=== PATIENT | female | born 1960 | race African-American/Black ===

== ENCOUNTER 2025-01-22 09:24 | Inpatient (IN) | payer MEDICARE, MEDICAID ==
[~2025-01-22] VITALS: Ht 170.2 cm; Wt 92.1 kg
[2025-01-22 09:26] VITALS: O2SAT 98
[2025-01-22 10:15] LABS: BASOPHILS % 0.2 % (0.0-2.0); EOSINOPHILS % 0.0 % (0.0-5.0); HEMATOCRIT. 38.1 % (36.0-48.0); HEMOGLOBIN. 10.8 g/dL (12.0-16.0); LYMPHOCYTES % 15.1 % (20.0-50.0); MEAN PLATELET VOLUME 9.1 fl (7.4-10.4); MONOCYTES % 4.7 % (2.0-8.0); NEUTROPHILS % 80.0 % (40.0-76.0); PLATELET 288 x1000/uL (130-400); RED BLOOD CELL COUNT 3.23 mill/uL (4.2-5.4); RED CELL DISTRIBUTION WIDTH 16.4 % (11.6-14.6)
[2025-01-22 10:17] LABS: ADD RBC MORPHOLOGY YES
[2025-01-22 10:53] LABS: CREATININE 1.1 mg/dL (0.6-1.0); UREA NITROGEN BLOOD 13 mg/dL (9-23)
[2025-01-22] MEDS ORDERED: SODIUM CHLORIDE 0.9% 1,000 ML IV ONE (11:30)
[2025-01-22] MEDS: SODIUM CHLORIDE 0.9% 1,000 ML IV ONE (12:06)
[2025-01-22] MEDS: PANTOPRAZOLE SODIUM 40 MG/VIAL IV NR (12:06)
[2025-01-22] MEDS ORDERED: ONDANSETRON HCL 4MG/2ML INJ IV PRN (12:15)
[2025-01-22] MEDS ORDERED: ACETAMINOPHEN 325MG TABLET PO PRN ×2 (12:15)
[2025-01-22] MEDS ORDERED: IPRATROPIUM/ALBUTEROL 0.5-3(2.5)MG/3ML NEB HHN PRN (12:15)
[2025-01-22 12:30] LABS: PLATELET ESTIMATE NORMAL
[2025-01-22] MEDS: SODIUM CHLORIDE 0.9% 1,000 ML IV SCH (12:45)
[2025-01-22] MEDS: BLOOD SUGAR DIAGNOSTIC STRIP TEST SCH (13:00)
[2025-01-22 14:18] LABS: INR 1.3
[2025-01-22 14:19] LABS: PHOSPHORUS 4.5 mg/dL (2.5-4.9)
[2025-01-22 14:23] LABS: FOLIC ACID (FOLATE) SERUM 8.90 ng/mL (>5.38); VITAMIN B12 SERUM 1091 pg/mL (211-911)
[2025-01-22] MEDS ORDERED: NON FORMULARY MED XX SCH (14:45)
[2025-01-22] MEDS: INSULIN REGULAR (HUMULIN R) 1000UNITS/10ML VIAL IV SCH (15:00)
[2025-01-22] MEDS: INSULIN GLARGINE 100 UNITS/ML SUBCUT SCH (15:00)
[2025-01-22] MEDS: SODIUM CHLORIDE 0.9% 250 ML IV ONE (15:18)
[2025-01-22] MEDS: MAGNESIUM 2 G PREMIX 50 ML IV SCH (15:39)
[2025-01-22 16:38] LABS: BG BASE EXCESS -3.5 mmol/L (-2.0-3.0); BG CARBOXYHEMOGLOBIN 0.3 % (0.5-1.5); BG DEOXYHEMOGLOBIN 4.2 % (0.0-5.0); BG FRACTION INSPIRED OXYGEN 21; BG HCO3 ACT 19.7 mmol/L (21.0-28.0); BG METHEMOGLOBIN 0.3 % (0.5-1.5); BG OXYGEN SATURATION 95.8 % (94.0-98.0); BG OXYHEMOGLOBIN 95.2 % (94.0-98.0); BG PCO2 29.2 mmHg (32.0-45.0); BG PH 7.446 (7.350-7.450); BG PO2 79.4 mmHg (83.0-108.0); BG SAMPLE SITE RIGHT BRACHIAL; BG TOTAL HEMOGLOBIN 10.4 g/dL (12.0-16.0); BG VENT MODE ROOM AIR
[2025-01-22 17:10] LABS: CREATININE 0.9 mg/dL (0.6-1.0); UREA NITROGEN BLOOD 19 mg/dL (9-23)
[2025-01-22 17:15] LABS: T4 FREE 0.97 ng/dL (0.89-1.76)
[2025-01-22 19:01] VITALS: BP 100/61; PULSE 81; RESP 16; TEMP 36.696
[2025-01-22 20:00] VITALS: BP 107/66; PULSE 94; RESP 19; TEMP 36.6; O2SAT 100
[2025-01-22] MEDS ORDERED: TOPUD PO (20:17)
[2025-01-22 22:15] LABS: PHOSPHORUS 4.2 mg/dL (2.5-4.9)
[2025-01-23] VITALS: BP 103/61; PULSE 89; RESP 18; TEMP 36.7; O2SAT 98
[2025-01-23 04:00] VITALS: BP 98/54; PULSE 90; RESP 18; TEMP 36.6; O2SAT 98
[2025-01-23] MEDS: DEXTROSE 50% WATER 50ML SYRINGE IV PRN (06:58)
[2025-01-23] MEDS ORDERED: SODIUM CHLORIDE 0.9% 1,000 ML IV NR (07:45)
[2025-01-23 08:00] VITALS: BP 90/62; PULSE 74; RESP 18; TEMP 36.4; O2SAT 98
[2025-01-23] MEDS: DEXT 5% WATER 100 ML IV ONE (08:50)
[2025-01-23] MEDS: IRON SUCROSE COMPLEX 100 MG/5 ML ML IV SCH (08:50)
[2025-01-23] MEDS ORDERED: DEXTROSE 50% WATER 50ML SYRINGE IV PRN (10:15)
[2025-01-23] MEDS: BLOOD SUGAR DIAGNOSTIC STRIP TEST SCH (11:39)
[2025-01-23] MEDS: INSULIN LISPRO 100 UNITS/ML SUBCUT SCH (11:40)
[2025-01-23 12:00] VITALS: BP 98/53; PULSE 70; RESP 16; TEMP 36.6; O2SAT 97
[2025-01-23] MEDS: DEXT 5%/0.9% NACL 1,000 ML IV SCH (14:09)
[2025-01-23 16:00] VITALS: BP 100/52; PULSE 92; RESP 18; TEMP 37; O2SAT 100
[2025-01-23 20:00] VITALS: BP 97/55; PULSE 72; RESP 16; TEMP 36.5; O2SAT 99
[2025-01-23] MEDS ORDERED: IOHEXOL-350 50 ML BOTTLE ONE (23:55)
[2025-01-23] MEDS ORDERED: IOHEXOL-350 100 ML BOTTLE ONE (23:55)
[2025-01-24] VITALS (10 sets, daily range): BP systolic 103–111; BP diastolic 48–62; PULSE 79–84; RESP 18–20; TEMP 36.5–36.6; O2SAT 96–99
[2025-01-24] MEDS ORDERED: CEFAZOLIN 1000MG PREMIX 50 ML IV ONE ×2 (08:45→08:54)
[2025-01-24] MEDS ORDERED: LIDOCAINE HCL 1% 10 MG/ML 10ML VIAL ONE (09:03)
[2025-01-24] MEDS: CLINDAMYCIN 600MG PREMIX 50 ML IV SCH (09:40)
[2025-01-24 18:39] LABS: BASOPHILS % 0.4 % (0.0-2.0); EOSINOPHILS % 0.2 % (0.0-5.0); HEMATOCRIT. 30.2 % (36.0-48.0); HEMOGLOBIN. 9.8 g/dL (12.0-16.0); LYMPHOCYTES % 18.9 % (20.0-50.0); MEAN PLATELET VOLUME 9.2 fl (7.4-10.4); MONOCYTES % 8.0 % (2.0-8.0); NEUTROPHILS % 72.5 % (40.0-76.0); PLATELET 267 x1000/uL (130-400); RED BLOOD CELL COUNT 2.90 mill/uL (4.2-5.4); RED CELL DISTRIBUTION WIDTH 14.6 % (11.6-14.6)
[2025-01-24 18:56] LABS: UREA NITROGEN BLOOD 15 mg/dL (9-23)
[2025-01-24 18:59] LABS: PHOSPHORUS 3.7 mg/dL (2.5-4.9)
[2025-01-24 19:12] LABS: CREATININE 0.5 mg/dL (0.6-1.0)
[2025-01-25 06:11] LABS: FOLICLE STIMULATING HORMONE 72.4 mIU/mL (25.8-134.8); LUTEINIZING HORMONE 68.1 mIU/mL (7.7-58.5)
[2025-01-25 08:30] VITALS: BP 125/66; PULSE 72; RESP 18; TEMP 36.6; O2SAT 97
[2025-01-25] MEDS ORDERED: FERR325T6 MT (11:46)
[2025-01-25 12:30] VITALS: BP 120/69; PULSE 70; RESP 18; TEMP 36.5; O2SAT 96
[2025-01-25 16:30] VITALS: BP 115/72; PULSE 71; RESP 18; TEMP 36.5; O2SAT 96
[2025-01-25 17:13] LABS: BASOPHILS % 0.7 % (0.0-2.0); EOSINOPHILS % 0.2 % (0.0-5.0); HEMATOCRIT. 28.7 % (36.0-48.0); HEMOGLOBIN. 9.3 g/dL (12.0-16.0); LYMPHOCYTES % 18.7 % (20.0-50.0); MEAN PLATELET VOLUME 9.1 fl (7.4-10.4); MONOCYTES % 6.6 % (2.0-8.0); NEUTROPHILS % 73.8 % (40.0-76.0); PLATELET 230 x1000/uL (130-400); RED BLOOD CELL COUNT 2.72 mill/uL (4.2-5.4); RED CELL DISTRIBUTION WIDTH 14.7 % (11.6-14.6)
[2025-01-25 17:27] VITALS: BP 115/67; PULSE 62; RESP 18; TEMP 97.7
[2025-01-25 17:31] LABS: CREATININE 0.6 mg/dL (0.6-1.0)
[2025-01-25 17:32] LABS: UREA NITROGEN BLOOD 14 mg/dL (9-23)
== END 2025-01-25 18:40 | disposition home or self-care (01) | DRG 299 ==
LOC: ER 09:24 → EDBEDREQ 11:57 → EDBEDREQTM 11:57 → 8WST 18:24
PROVIDERS: ADMIT Hospitalist; ATTEND Hospitalist
PROC: 06H03DZ Insertion of Intraluminal Device into Inferior Vena Cava, Percutaneous Approach (ICD-10-PCS; principal; 2025-01-24)
DX: I82.433 Acute embolism and thrombosis of popliteal vein, bilateral (principal); L89.153 Pressure ulcer of sacral region, stage 3; E87.20 Acidosis, unspecified; N93.8 Other specified abnormal uterine and vaginal bleeding; D21.9 Benign neoplasm of connective and other soft tissue, unspecified; N85.2 Hypertrophy of uterus; D50.9 Iron deficiency anemia, unspecified; N95.0 Postmenopausal bleeding; D64.9 Anemia, unspecified; I95.9 Hypotension, unspecified; E66.9 Obesity, unspecified; R73.9 Hyperglycemia, unspecified; Z68.32 Body mass index [BMI] 32.0-32.9, adult
CPT/HCPCS: 36415; 36556; 36600; 37191; 71045; 74174; 76856; 80048; 82010; 82375; 82607; 82746; 82805; 82962; 83001; 83002; 83036; 83540; 83550; 83605; 83735; 84100; 84145; 84439; 84443; 85014; 85018; 85025; 86850; 86900; 93005; 93970; 96365; 96372; 99285; C1769; C1880; C1887; J0690; J1815; J2003; J2470; J3475; J3490; J7030; J7042; Q9967

== ENCOUNTER 2025-02-04 11:10 | Inpatient (IN) | payer MEDICARE, MEDICAID ==
[~2025-02-04] VITALS: Ht 170.2 cm; Wt 127.6 kg
[2025-02-04 11:10] VITALS: O2SAT 100
[~2025-02-04 11:10] MED LIST: FERR325T6 MT; LEVO750T68 MT; TOPUD PO
[2025-02-04] MEDS: LACTATED RINGERS 1,000 ML IV SCH (11:30)
[2025-02-04] MEDS ORDERED: CEFEPIME 2GM IN DEXT 5% 100ML IV ONE (11:30)
[2025-02-04 12:12] LABS: EOSINOPHILS % 0.1 % (0.0-5.0); MEAN PLATELET VOLUME 8.7 fl (7.4-10.4); PLATELET 149 x1000/uL (130-400); RED BLOOD CELL COUNT 2.00 mill/uL (4.2-5.4); RED CELL DISTRIBUTION WIDTH 17.4 % (11.6-14.6)
[2025-02-04] MEDS: LACTATED RINGERS IV SCH (12:12)
[2025-02-04 12:20] LABS: BASOPHILS % 0.2 % (0.0-2.0); HEMATOCRIT. 22.1 % (36.0-48.0); HEMOGLOBIN. 6.6 g/dL (12.0-16.0); LYMPHOCYTES % 11.3 % (20.0-50.0); MONOCYTES % 4.6 % (2.0-8.0); NEUTROPHILS % 83.8 % (40.0-76.0)
[2025-02-04 12:22] LABS: CREATININE 1.2 mg/dL (0.6-1.0); UREA NITROGEN BLOOD 21 mg/dL (9-23)
[2025-02-04 12:23] LABS: TROPONIN I HIGH SENSITIVITY 7 ng/L (3.0-34)
[2025-02-04 12:24] LABS: ASPARTATE AMINOTRANSFERASE 29 IU/L (<34); BILIRUBIN TOTAL 0.6 mg/dL (0.1-1.0); PROTEIN TOTAL 6.2 g/dL (6.0-8.3)
[2025-02-04] MEDS: CEFEPIME 2GM PREMIX 100ML IV SCH (12:32)
[2025-02-04 12:58] LABS: INR 1.9
[2025-02-04] MEDS: ONDANSETRON HCL 4MG/2ML INJ IV ONE (13:32)
[2025-02-04] MEDS ORDERED: ACETAMINOPHEN 325MG TABLET PO PRN (13:45)
[2025-02-04] MEDS: SODIUM CHLORIDE 0.9% 1,000 ML IV SCH (14:14)
[2025-02-04] MEDS: MIDODRINE HCL 5MG TABLET PO SCH (22:10)
[2025-02-04 23:11] LABS: BASOPHILS % 0.2 % (0.0-2.0); EOSINOPHILS % 0.3 % (0.0-5.0); HEMATOCRIT. 24.3 % (36.0-48.0); HEMOGLOBIN. 7.7 g/dL (12.0-16.0); LYMPHOCYTES % 10.4 % (20.0-50.0); MEAN PLATELET VOLUME 7.7 fl (7.4-10.4); MONOCYTES % 6.7 % (2.0-8.0); NEUTROPHILS % 82.4 % (40.0-76.0); PLATELET 70 x1000/uL (130-400); RED BLOOD CELL COUNT 2.34 mill/uL (4.2-5.4); RED CELL DISTRIBUTION WIDTH 20.0 % (11.6-14.6)
[2025-02-04 23:30] VITALS: BP 94/60; PULSE 73; RESP 18; TEMP 36.1; TEMP 36.14; O2SAT 97
[2025-02-05 04:00] VITALS: BP 95/59; PULSE 82; RESP 18; TEMP 36.7; O2SAT 96
[2025-02-05] MEDS: SODIUM CHLORIDE 0.9% 1,000 ML IV SCH (04:23)
[2025-02-05] MEDS: MIDODRINE HCL 5MG TABLET PO SCH (06:38)
[2025-02-05] MEDS: BLOOD SUGAR DIAGNOSTIC STRIP TEST SCH (07:30)
[2025-02-05] MEDS: INSULIN LISPRO 100 UNITS/ML SUBCUT SCH (07:50)
[2025-02-05 08:00] VITALS: BP 75/42; PULSE 53; RESP 15; TEMP 36.3; O2SAT 96
[2025-02-05 12:00] VITALS: BP 89/48; PULSE 87; RESP 18; TEMP 36.6; O2SAT 97
[2025-02-05] MEDS: LEVOFLOXACIN 750MG PREMIX 150 ML IV SCH (13:03)
[2025-02-05 13:38] LABS: CREATININE 1.2 mg/dL (0.6-1.0)
[2025-02-05 13:39] LABS: UREA NITROGEN BLOOD 15.0 mg/dL (9-23)
[2025-02-05 16:00] VITALS: BP 89/48; PULSE 83; RESP 17; TEMP 36.5; O2SAT 98
[2025-02-05 18:44] LABS: BASOPHILS % 0.2 % (0.0-2.0); EOSINOPHILS % 0.6 % (0.0-5.0); HEMATOCRIT. 25.4 % (36.0-48.0); HEMOGLOBIN. 7.9 g/dL (12.0-16.0); LYMPHOCYTES % 10.4 % (20.0-50.0); MEAN PLATELET VOLUME 9.1 fl (7.4-10.4); MONOCYTES % 4.7 % (2.0-8.0); NEUTROPHILS % 84.1 % (40.0-76.0); PLATELET 164 x1000/uL (130-400); RED BLOOD CELL COUNT 2.44 mill/uL (4.2-5.4); RED CELL DISTRIBUTION WIDTH 20.8 % (11.6-14.6)
[2025-02-05 20:00] VITALS: BP 86/42; PULSE 79; RESP 20; TEMP 35.7; O2SAT 97
[2025-02-05] MEDS ORDERED: MIDODRINE HCL 5MG TABLET PO SCH (22:00)
[2025-02-06] VITALS (7 sets, daily range): BP systolic 79–92; BP diastolic 43–51; PULSE 77–82; RESP 15–19; TEMP 36.1–37.2; O2SAT 95–100
[2025-02-06] MEDS: MIDODRINE HCL 5MG TABLET PO SCH ×2 (05:18→12:42)
[2025-02-07] VITALS: BP 83/50; PULSE 82; RESP 17; TEMP 36.5; O2SAT 99
[2025-02-07 04:00] VITALS: BP 74/44; PULSE 72; RESP 18; TEMP 36.4; O2SAT 98
[2025-02-07] MEDS: DEXTROSE 50% WATER 50ML SYRINGE IV PRN (05:57)
[2025-02-07 08:00] VITALS: BP 82/42; PULSE 77; RESP 16; TEMP 35.6; O2SAT 98
[2025-02-07] MEDS: FLUDROCORTISONE ACETATE 0.1MG TABLET PO SCH (11:35)
[2025-02-07 12:00] VITALS: BP 87/45; PULSE 79; RESP 17; TEMP 36; O2SAT 96
[2025-02-07 15:47] LABS: BASOPHILS % 0.1 % (0.0-2.0); EOSINOPHILS % 0.3 % (0.0-5.0); HEMATOCRIT. 27.4 % (36.0-48.0); HEMOGLOBIN. 8.4 g/dL (12.0-16.0); LYMPHOCYTES % 11.2 % (20.0-50.0); MEAN PLATELET VOLUME 8.4 fl (7.4-10.4); MONOCYTES % 5.9 % (2.0-8.0); NEUTROPHILS % 82.5 % (40.0-76.0); PLATELET 144 x1000/uL (130-400); RED BLOOD CELL COUNT 2.57 mill/uL (4.2-5.4); RED CELL DISTRIBUTION WIDTH 20.5 % (11.6-14.6)
[2025-02-07 16:00] VITALS: BP 129/79; PULSE 84; RESP 16; TEMP 36.1; O2SAT 97
[2025-02-07 16:02] LABS: CREATININE 0.8 mg/dL (0.6-1.0); UREA NITROGEN BLOOD 16 mg/dL (9-23)
[2025-02-07 20:00] VITALS: BP_SYST 102; BP_SYST 110; BP_DIAS 54; BP_DIAS 58; PULSE 81; PULSE 99; RESP 18; TEMP 36.4; O2SAT 98; O2SAT 99
[2025-02-08] VITALS (7 sets, daily range): BP systolic 92–101; BP diastolic 60–67; PULSE 92–99; RESP 18–19; TEMP 35.8–36.4; O2SAT 95–98
[2025-02-08] MEDS: ONDANSETRON HCL 4MG/2ML INJ IV PRN (05:18)
[2025-02-08 12:40] LABS: HEMATOCRIT. 26.2 % (36.0-48.0); HEMOGLOBIN. 7.8 g/dL (12.0-16.0); MEAN PLATELET VOLUME 8.6 fl (7.4-10.4); RED BLOOD CELL COUNT 2.41 mill/uL (4.2-5.4); RED CELL DISTRIBUTION WIDTH 21.1 % (11.6-14.6)
[2025-02-08 12:41] LABS: PLATELET 120 x1000/uL (130-400)
[2025-02-08] MEDS: LEVOFLOXACIN 750MG PREMIX 150 ML IV SCH (12:42)
[2025-02-08 17:14] LABS: LYMPHOCYTES % MANUAL 2.0 % (20.0-60.0); MONOCYTES % MANUAL 2.0 % (2.0-8.0); NEUTROPHILS % MANUAL 96.0 % (45.0-75.0); PLATELET ESTIMATE DECREASED
[2025-02-09] VITALS: BP 106/63; PULSE 93; RESP 18; TEMP 36; O2SAT 94
[2025-02-09 04:00] VITALS: BP 114/68; PULSE 101; RESP 19; TEMP 36.2; O2SAT 96
[2025-02-09 08:00] VITALS: BP 96/57; PULSE 100; RESP 15; TEMP 36.6; O2SAT 96
[2025-02-09 12:00] VITALS: BP 85/50; PULSE 101; RESP 16; TEMP 35.6; O2SAT 97
[2025-02-09 16:00] VITALS: BP 115/65; PULSE 106; RESP 15; TEMP 36.5; O2SAT 96
[2025-02-09 20:00] VITALS: BP 100/53; PULSE 103; RESP 18; TEMP 35.9; O2SAT 96
[2025-02-10] VITALS: BP 93/51; PULSE 103; RESP 18; TEMP 36.1; O2SAT 97
[2025-02-10 04:00] VITALS: BP 94/54; PULSE 100; RESP 19; TEMP 35.9; O2SAT 100
[2025-02-10 08:00] VITALS: BP 106/56; PULSE 101; RESP 17; TEMP 35.6; O2SAT 95
[2025-02-10 10:28] LABS: HEMATOCRIT. 28.7 % (36.0-48.0); HEMOGLOBIN. 8.8 g/dL (12.0-16.0); MEAN PLATELET VOLUME 8.9 fl (7.4-10.4); PLATELET 148 x1000/uL (130-400); RED BLOOD CELL COUNT 2.68 mill/uL (4.2-5.4); RED CELL DISTRIBUTION WIDTH 20.3 % (11.6-14.6)
[2025-02-10 10:47] LABS: UREA NITROGEN BLOOD 28.0 mg/dL (9-23)
[2025-02-10 11:00] LABS: CREATININE 2.1 mg/dL (0.6-1.0)
[2025-02-10 12:00] VITALS: BP 104/41; PULSE 97; RESP 16; TEMP 35.8; O2SAT 93
[2025-02-10] MEDS: SODIUM CHLORIDE 0.9% 1,000 ML IV SCH (14:52)
[2025-02-10 18:05] LABS: LYMPHOCYTES % MANUAL 6.0 % (20.0-60.0); MONOCYTES % MANUAL 5.0 % (2.0-8.0); NEUTROPHILS % MANUAL 89.0 % (45.0-75.0); PLATELET ESTIMATE NORMAL
[2025-02-10 20:00] VITALS: BP 90/64; PULSE 95; RESP 19; TEMP 36.7; O2SAT 100
[2025-02-10] MEDS ORDERED: CEFEPIME 2GM IN DEXT 5% 100ML IV SCH (21:00)
[2025-02-10] MEDS: METRONIDAZOLE 500MG TABLET PO SCH (22:00)
[2025-02-11] VITALS: BP 109/58; PULSE 89; RESP 19; TEMP 36.7; O2SAT 94
[2025-02-11] MEDS: CEFEPIME 2GM/100ML 100 ML IV SCH (00:21)
[2025-02-11 04:00] VITALS: BP 121/53; PULSE 94; RESP 19; TEMP 35.3; O2SAT 94
[2025-02-11 12:00] VITALS: BP 150/94; PULSE 92; RESP 19; TEMP 36.3; O2SAT 99
[2025-02-11 16:00] VITALS: BP 107/62; PULSE 96; RESP 18; TEMP 36.6; O2SAT 98
[2025-02-12 08:00] VITALS: BP 103/58; PULSE 100; RESP 19; TEMP 36.3; O2SAT 97
[2025-02-12 12:00] VITALS: BP 104/60; PULSE 98; RESP 18; TEMP 36.3; O2SAT 97
[2025-02-12 16:00] VITALS: BP 97/59; PULSE 98; RESP 19; TEMP 36.3; O2SAT 97
[2025-02-12] MEDS: METRONIDAZOLE 500 MG PREMIX 100 ML IV SCH (17:19)
[2025-02-12 20:00] VITALS: BP 80/43; PULSE 103; RESP 19; TEMP 35.8; O2SAT 99
[2025-02-13] VITALS: BP 84/52; PULSE 81; RESP 18; TEMP 35.8; O2SAT 96
[2025-02-13 03:53] VITALS: BP 97/66; PULSE 102; RESP 18; TEMP 36.3; O2SAT 95
[2025-02-13 08:00] VITALS: BP 99/63; PULSE 92; RESP 18; TEMP 36.4; O2SAT 97
[2025-02-13 12:00] VITALS: BP 93/57; PULSE 75; RESP 19; TEMP 36.4; O2SAT 95
[2025-02-13 16:00] VITALS: BP 104/51; PULSE 96; RESP 18; TEMP 36.6; O2SAT 99
[2025-02-13 20:00] VITALS: BP 160/121; PULSE 102; RESP 19; TEMP 35.1; O2SAT 96
[2025-02-13] MEDS: MENTHOL/LANOLIN/CALAMINE/ZN OX OINT 71GM TOP SCH (21:43)
[2025-02-14] VITALS: BP 146/118; PULSE 99; RESP 19; TEMP 36.1; O2SAT 96
[2025-02-14 04:00] VITALS: BP 84/44; PULSE 90; RESP 19; TEMP 36.5; O2SAT 96
[2025-02-14] MEDS: FUROSEMIDE 40MG TABLET PO SCH (07:15)
[2025-02-14 12:00] VITALS: BP 76/41; PULSE 98; RESP 16; TEMP 36.2; O2SAT 98
[2025-02-14 16:00] VITALS: BP 71/45; PULSE 92; RESP 17; TEMP 36.2; O2SAT 100
[2025-02-14 17:44] LABS: MEAN PLATELET VOLUME 9.5 fl (7.4-10.4); PLATELET 107 x1000/uL (130-400); RED BLOOD CELL COUNT 1.91 mill/uL (4.2-5.4); RED CELL DISTRIBUTION WIDTH 19.5 % (11.6-14.6)
[2025-02-14 17:50] LABS: UREA NITROGEN BLOOD 55.0 mg/dL (9-23)
[2025-02-14 17:56] LABS: HEMATOCRIT. 20.1 % (36.0-48.0)
[2025-02-14 17:57] LABS: HEMOGLOBIN. 6.1 g/dL (12.0-16.0)
[2025-02-14 18:04] LABS: CREATININE 4.3 mg/dL (0.6-1.0)
[2025-02-14] MEDS: SODIUM CHLORIDE 0.45% 1,000 ML IV SCH (19:29)
[2025-02-14 20:00] VITALS: BP 70/44; PULSE 97; RESP 18; TEMP 36.3; O2SAT 98
[2025-02-14 23:35] LABS: BAND% 1.0 % (1.0-6.0); LYMPHOCYTES % MANUAL 5.0 % (20.0-60.0); MONOCYTES % MANUAL 6.0 % (2.0-8.0); NEUTROPHILS % MANUAL 88.0 % (45.0-75.0); PLATELET ESTIMATE DECREASED
[2025-02-15] VITALS (105 sets, daily range): BP systolic 59–169; BP diastolic 37–148; PULSE 95–126; RESP 11–36; TEMP 36.1–36.8; O2SAT 95–99
[2025-02-15] MEDS: NOREPINEPHRINE 8MG/250ML PMX 250 ML IV PRN
[2025-02-15] MEDS ORDERED: NOREPINEPHRINE 8MG/250ML PMX 250 ML IV PRN (00:30)
[2025-02-15 06:29] LABS: HEMATOCRIT. 24.5 % (36.0-48.0); HEMOGLOBIN. 7.9 g/dL (12.0-16.0); MEAN PLATELET VOLUME 9.6 fl (7.4-10.4); PLATELET 91 x1000/uL (130-400); RED BLOOD CELL COUNT 2.48 mill/uL (4.2-5.4); RED CELL DISTRIBUTION WIDTH 21.1 % (11.6-14.6)
[2025-02-15 06:33] LABS: CREATININE 4.1 mg/dL (0.6-1.0)
[2025-02-15 06:34] LABS: UREA NITROGEN BLOOD 50 mg/dL (9-23)
[2025-02-15] MEDS: PANTOPRAZOLE SODIUM 40 MG/VIAL IV SCH ×2 (08:04→20:47)
[2025-02-15] MEDS: KCL 20MEQ/100ML PREMIX 100 ML IV NR ×2 (08:04→10:27)
[2025-02-15 08:11] LABS: CLARITY URINE CLOUDY (CLEAR); COLOR URINE DARK YELLOW (YELLOW); GLUCOSE URINE TRACE (NEGATIVE); KETONES URINE 1+ (NEGATIVE); LEUKOCYTE ESTERASE URINE TRACE (NEGATIVE); NITRITE URINE NEGATIVE (NEGATIVE); OCCULT BLOOD URINE NEGATIVE (NEGATIVE); PH URINE 5.0 (4.5-8.0); PROTEIN URINE 2+ (NEGATIVE); SPECIFIC GRAVITY URINE 1.033 (1.005-1.030); UROBILINOGEN URINE 0.2 E.U./dL (0.2-1.0)
[2025-02-15 08:49] LABS: SQUAMOUS EPITHELIAL CELL URINE 3+ /lpf (RARE/1+)
[2025-02-15 08:50] LABS: BACTERIA URINE 2+; RBC URINE NONE SEEN /hpf (0-2)
[2025-02-15 10:34] LABS: BAND% 9.0 % (1.0-6.0); LYMPHOCYTES % MANUAL 5.0 % (20.0-60.0); MONOCYTES % MANUAL 2.0 % (2.0-8.0); NEUTROPHILS % MANUAL 84.0 % (45.0-75.0); PLATELET ESTIMATE DECREASED
[2025-02-15] MEDS: MAGNESIUM 2 G PREMIX 50 ML IV NR (11:03)
[2025-02-15] MEDS: MEROPENEM 1G/100ML 100 ML IV SCH (16:09)
[2025-02-16] VITALS (95 sets, daily range): BP systolic 61–134; BP diastolic 34–78; PULSE 100–133; RESP 17–37; TEMP 36.6–36.9; O2SAT 93–99
[2025-02-16] MEDS: SODIUM BICARBONATE 100 MEQ in DEXTROSE 5% WATER 900 ML IV SCH (01:30)
[2025-02-16 04:57] LABS: HEMATOCRIT. 24.7 % (36.0-48.0); HEMOGLOBIN. 7.9 g/dL (12.0-16.0); MEAN PLATELET VOLUME 10.6 fl (7.4-10.4); PLATELET 73 x1000/uL (130-400); RED BLOOD CELL COUNT 2.51 mill/uL (4.2-5.4); RED CELL DISTRIBUTION WIDTH 21.6 % (11.6-14.6)
[2025-02-16 05:06] LABS: CREATININE 4.6 mg/dL (0.6-1.0)
[2025-02-16 05:07] LABS: UREA NITROGEN BLOOD 60 mg/dL (9-23)
[2025-02-16 05:12] LABS: FOLIC ACID (FOLATE) SERUM 3.70 ng/mL (>5.38)
[2025-02-16 05:13] LABS: VITAMIN B12 SERUM 728 pg/mL (211-911)
[2025-02-16 08:02] LABS: BAND% 25.0 % (1.0-6.0); LYMPHOCYTES % MANUAL 2.0 % (20.0-60.0); MONOCYTES % MANUAL 1.0 % (2.0-8.0); NEUTROPHILS % MANUAL 72.0 % (45.0-75.0); NUCLEATED RED BLOOD CELLS 4 /100 WBC; PLATELET ESTIMATE DECREASED
[2025-02-16] MEDS: MAGNESIUM 1 G PREMIX 100 ML IV NR (16:20)
[2025-02-16] MEDS: MEROPENEM 500MG/50ML 50 ML IV SCH (21:57)
[2025-02-16] MEDS: NOREPINEPHRINE 32 MG in DEXT 5% WATER 218 ML IV PRN (23:06)
[2025-02-16] MEDS: PHENYLEPHRINE 100 MG in DEXT 5% WATER 240 ML IV PRN (23:45)
[2025-02-17] VITALS (102 sets, daily range): BP systolic 58–223; BP diastolic 39–187; PULSE 98–134; RESP 12–33; TEMP 36.1–37; O2SAT 94–100
[2025-02-17] MEDS: VASOPRESSIN 20 UNIT in SODIUM CHLORIDE 0.9% 99 ML IV PRN (01:22)
[2025-02-17 05:44] LABS: BASOPHILS % 0.0 % (0.0-2.0); EOSINOPHILS % 0.2 % (0.0-5.0); HEMATOCRIT. 24.4 % (36.0-48.0); HEMOGLOBIN. 7.5 g/dL (12.0-16.0); LYMPHOCYTES % 7.6 % (20.0-50.0); MEAN PLATELET VOLUME 10.2 fl (7.4-10.4); MONOCYTES % 5.0 % (2.0-8.0); NEUTROPHILS % 87.2 % (40.0-76.0); PLATELET 53 x1000/uL (130-400); RED BLOOD CELL COUNT 2.40 mill/uL (4.2-5.4); RED CELL DISTRIBUTION WIDTH 22.2 % (11.6-14.6)
[2025-02-17 05:54] LABS: UREA NITROGEN BLOOD 53 mg/dL (9-23)
[2025-02-17 05:56] LABS: PHOSPHORUS 3.8 mg/dL (2.5-4.9)
[2025-02-17 06:12] LABS: CREATININE 5.0 mg/dL (0.6-1.0)
[2025-02-17] MEDS: MIDODRINE HCL 2.5MG TABLET PO SCH (07:18)
[2025-02-17] MEDS ORDERED: AMIODARONE HCL 50MG/ML 3ML VIAL IV ONE (14:45)
[2025-02-17] MEDS: AMIODARONE 150MG/100ML PREMIX IV SCH (15:00)
[2025-02-17] MEDS: AMIODARONE HCL 900 MG in DEXT 5% WATER 482 ML IV SCH (16:23)
[2025-02-17 21:49] LABS: BG BASE EXCESS -10.3 mmol/L (-2.0-3.0); BG CARBOXYHEMOGLOBIN 1.2 % (0.5-1.5); BG DEOXYHEMOGLOBIN 0.6 % (0.0-5.0); BG FRACTION INSPIRED OXYGEN 40%; BG HCO3 ACT 13.6 mmol/L (21.0-28.0); BG METHEMOGLOBIN 0.3 % (0.5-1.5); BG OXYGEN SATURATION 99.4 % (94.0-98.0); BG OXYHEMOGLOBIN 97.9 % (94.0-98.0); BG PCO2 23.4 mmHg (32.0-45.0); BG PH 7.381 (7.350-7.450); BG PO2 165.0 mmHg (83.0-108.0); BG SAMPLE SITE LEFT RADIAL; BG TOTAL HEMOGLOBIN 7.7 g/dL (12.0-16.0); BG VENT MODE NASAL CANNULA
[2025-02-17] MEDS ORDERED: IPRATROPIUM/ALBUTEROL 0.5-3(2.5)MG/3ML NEB HHN PRN (22:15)
[2025-02-18] VITALS (109 sets, daily range): BP systolic 43–126; BP diastolic 25–96; PULSE 79–172; RESP 15–25; TEMP 36.5–36.8; O2SAT 83–100
[2025-02-18 05:18] LABS: BASOPHILS % 0.1 % (0.0-2.0); EOSINOPHILS % 0.3 % (0.0-5.0); LYMPHOCYTES % 10.3 % (20.0-50.0); MEAN PLATELET VOLUME 11.3 fl (7.4-10.4); MONOCYTES % 5.5 % (2.0-8.0); NEUTROPHILS % 83.8 % (40.0-76.0); RED BLOOD CELL COUNT 2.03 mill/uL (4.2-5.4); RED CELL DISTRIBUTION WIDTH 22.6 % (11.6-14.6)
[2025-02-18] MEDS: AMIODARONE 150MG/100ML D5W 100 ML IV NR ×2 (05:27→19:53)
[2025-02-18 05:41] LABS: CREATININE 4.5 mg/dL (0.6-1.0); UREA NITROGEN BLOOD 56.0 mg/dL (9-23)
[2025-02-18] MEDS: MIDODRINE HCL 5MG TABLET PO SCH (06:47)
[2025-02-18 07:18] LABS: HEMATOCRIT. 20.6 % (36.0-48.0); HEMOGLOBIN. 6.3 g/dL (12.0-16.0); PLATELET 33 x1000/uL (130-400)
[2025-02-18] MEDS ORDERED: AMIODARONE 150MG/100ML D5W 100 ML IV ONE (08:00)
[2025-02-18] MEDS: ACETAMINOPHEN 325MG TABLET PO PRN (08:19)
[2025-02-18] MEDS: AMIODARONE HCL 900 MG in DEXT 5% WATER 482 ML IV SCH (10:00)
[2025-02-18] MEDS: AMIODARONE 150MG/100ML D5W 100 ML IV SCH (10:30)
[2025-02-18 10:35] LABS: BG BASE EXCESS -18.3 mmol/L (-2.0-3.0); BG CARBOXYHEMOGLOBIN 1.9 % (0.5-1.5); BG DEOXYHEMOGLOBIN 1.6 % (0.0-5.0); BG FLOW(L/min) 1.50 L/min; BG FRACTION INSPIRED OXYGEN 26; BG HCO3 ACT 7.0 mmol/L (21.0-28.0); BG METHEMOGLOBIN 0.4 % (0.5-1.5); BG OXYGEN SATURATION 98.4 % (94.0-98.0); BG OXYHEMOGLOBIN 96.1 % (94.0-98.0); BG PCO2 15.8 mmHg (32.0-45.0); BG PH 7.263 (7.350-7.450); BG PO2 117.9 mmHg (83.0-108.0); BG SAMPLE SITE LEFT RADIAL; BG TOTAL HEMOGLOBIN 6.8 g/dL (12.0-16.0); BG VENT MODE NASAL CANNULA
[2025-02-18] MEDS: SODIUM BICARBONATE 8.4% 50MEQ/50ML SYR IV NR ×2 (12:50→21:01)
[2025-02-18] MEDS: SODIUM CHLORIDE 0.45% 500 ML IV ONE ×2 (12:52→22:00)
[2025-02-18] MEDS: CALCIUM CHLORIDE 1GM/10ML SYR IV NR (12:54)
[2025-02-18] MEDS: SODIUM BICARBONATE 150 MEQ in DEXTROSE 5% WATER 850 ML IV SCH (14:26)
[2025-02-18] MEDS: LACTATED RINGERS 1,000 ML IV SCH (15:14)
[2025-02-18] MEDS ORDERED: DEXTROSE 5% WATER 1,000 ML IV ONE (16:45)
[2025-02-18 18:32] LABS: CREATININE 4.2 mg/dL (0.6-1.0)
[2025-02-18 18:33] LABS: UREA NITROGEN BLOOD 55.0 mg/dL (9-23)
[2025-02-18] MEDS: EPINEPHRINE 10 MG in SODIUM CHLORIDE 0.9% 240 ML IV PRN (18:40)
[2025-02-18] MEDS: OCTREOTIDE 1,000 MCG in SODIUM CHLORIDE 0.9% 98 ML IV SCH (19:15)
[2025-02-18 20:49] LABS: BG BASE EXCESS -15.5 mmol/L (-2.0-3.0); BG CARBOXYHEMOGLOBIN 0.1 % (0.5-1.5); BG DEOXYHEMOGLOBIN 0.4 % (0.0-5.0); BG FLOW(L/min) 15.00 L/min; BG FRACTION INSPIRED OXYGEN 100; BG HCO3 ACT 8.9 mmol/L (21.0-28.0); BG METHEMOGLOBIN 0.4 % (0.5-1.5); BG OXYGEN SATURATION 99.6 % (94.0-98.0); BG OXYHEMOGLOBIN 99.1 % (94.0-98.0); BG PCO2 18.3 mmHg (32.0-45.0); BG PH 7.306 (7.350-7.450); BG PO2 262.9 mmHg (83.0-108.0); BG SAMPLE SITE LEFT RADIAL; BG TOTAL HEMOGLOBIN 9.3 g/dL (12.0-16.0); BG VENT MODE MASK - NRB
[2025-02-18 20:57] LABS: SODIUM URINE RANDOM 23 mEq/L
[2025-02-18 21:53] LABS: OSMOLALITY URINE 345 mOsm/kg (500-850)
[2025-02-18] MEDS: HYDROCORTISONE SOD SUCCINATE 100 MG/2 ML VIAL IV SCH (22:20)
[2025-02-19] VITALS (98 sets, daily range): BP systolic 73–106; BP diastolic 48–85; PULSE 103–155; RESP 11–22; TEMP 35.6–36.7; O2SAT 84
[2025-02-19 05:41] LABS: BASOPHILS % 0.1 % (0.0-2.0); EOSINOPHILS % 0.1 % (0.0-5.0); HEMATOCRIT. 23.4 % (36.0-48.0); HEMOGLOBIN. 7.1 g/dL (12.0-16.0); LYMPHOCYTES % 7.2 % (20.0-50.0); MEAN PLATELET VOLUME 10.0 fl (7.4-10.4); MONOCYTES % 3.8 % (2.0-8.0); NEUTROPHILS % 88.8 % (40.0-76.0); RED BLOOD CELL COUNT 2.35 mill/uL (4.2-5.4); RED CELL DISTRIBUTION WIDTH 21.3 % (11.6-14.6)
[2025-02-19 05:48] LABS: INR 1.6
[2025-02-19 06:07] LABS: PLATELET 18 x1000/uL (130-400)
[2025-02-19] MEDS: SODIUM CHLORIDE 0.9% 500 ML IV ONE (08:13)
[2025-02-19 09:20] LABS: BG BASE EXCESS -14.3 mmol/L (-2.0-3.0); BG CARBOXYHEMOGLOBIN 1.1 % (0.5-1.5); BG DEOXYHEMOGLOBIN 1.2 % (0.0-5.0); BG FLOW(L/min) 6.00 L/min; BG FRACTION INSPIRED OXYGEN 40; BG HCO3 ACT 9.7 mmol/L (21.0-28.0); BG METHEMOGLOBIN 0.2 % (0.5-1.5); BG OXYGEN SATURATION 98.8 % (94.0-98.0); BG OXYHEMOGLOBIN 97.5 % (94.0-98.0); BG PCO2 18.2 mmHg (32.0-45.0); BG PH 7.345 (7.350-7.450); BG PO2 133.5 mmHg (83.0-108.0); BG SAMPLE SITE RIGHT RADIAL; BG TOTAL HEMOGLOBIN 8.0 g/dL (12.0-16.0); BG VENT MODE MASK - SIMPLE
[2025-02-19] MEDS ORDERED: MORPHINE SULFATE 2 MG/ML INJ (NOT FOR IM USE) IV PRN (10:00)
[2025-02-19] MEDS: ALBUMIN HUMAN 12.5GM/50ML (25%) IV NR (10:58)
[2025-02-19 11:19] LABS: CREATININE 4.2 mg/dL (0.6-1.0); UREA NITROGEN BLOOD 49 mg/dL (9-23)
[2025-02-19 11:20] LABS: ASPARTATE AMINOTRANSFERASE 22 IU/L (<34)
[2025-02-19 11:21] LABS: BILIRUBIN DIRECT 0.2 mg/dL (<=3.0); BILIRUBIN TOTAL 0.3 mg/dL (0.1-1.0); PHOSPHORUS 4.2 mg/dL (2.5-4.9); PROTEIN TOTAL 4.5 g/dL (6.0-8.3)
[2025-02-19] MEDS: MAGNESIUM 2 G PREMIX 50 ML IV NR (12:47)
[2025-02-19] MEDS: CALCIUM GLUCONATE 1GM PREMIX 50 ML IV NR (12:47)
[2025-02-19] MEDS: PHYTONADIONE 10 MG in DEXTROSE 5% WATER 49 ML IV NR (13:15)
[2025-02-19] MEDS: SODIUM BICARBONATE 8.4% 50MEQ/50ML SYR IV SCH (18:50)
[2025-02-19 21:46] LABS: BG BASE EXCESS -11.2 mmol/L (-2.0-3.0); BG CARBOXYHEMOGLOBIN 0.3 % (0.5-1.5); BG DEOXYHEMOGLOBIN 0.5 % (0.0-5.0); BG FRACTION INSPIRED OXYGEN 48; BG HCO3 ACT 13.6 mmol/L (21.0-28.0); BG METHEMOGLOBIN 0.3 % (0.5-1.5); BG OXYGEN SATURATION 99.5 % (94.0-98.0); BG OXYHEMOGLOBIN 98.9 % (94.0-98.0); BG PCO2 26.5 mmHg (32.0-45.0); BG PEEP (cmH2O) 7.0 cmH2O; BG PH 7.329 (7.350-7.450); BG PO2 196.4 mmHg (83.0-108.0); BG SAMPLE SITE LEFT RADIAL; BG TOTAL HEMOGLOBIN 7.7 g/dL (12.0-16.0); BG VENT MODE MASK - SIMPLE
[2025-02-20] VITALS (84 sets, daily range): BP systolic 38–111; BP diastolic 28–88; PULSE 69–154; RESP 8–25; TEMP 36.1–36.6; O2SAT 90–93
[2025-02-20 05:51] LABS: HEMATOCRIT. 22.0 % (36.0-48.0); MEAN PLATELET VOLUME 10.1 fl (7.4-10.4); RED BLOOD CELL COUNT 2.22 mill/uL (4.2-5.4); RED CELL DISTRIBUTION WIDTH 21.0 % (11.6-14.6)
[2025-02-20 06:24] LABS: HEMOGLOBIN. 6.8 g/dL (12.0-16.0); PLATELET 20 x1000/uL (130-400)
[2025-02-20 07:45] LABS: CREATININE 4.1 mg/dL (0.6-1.0); UREA NITROGEN BLOOD 56 mg/dL (9-23)
[2025-02-20 07:47] LABS: PHOSPHORUS 4.2 mg/dL (2.5-4.9)
[2025-02-20] MEDS ORDERED: NALOXONE HCL 0.4MG/ML VIAL IV PRN (08:15)
[2025-02-20 09:36] LABS: BG BASE EXCESS -10.3 mmol/L (-2.0-3.0); BG CARBOXYHEMOGLOBIN 1.6 % (0.5-1.5); BG DEOXYHEMOGLOBIN 1.2 % (0.0-5.0); BG FLOW(L/min) 5.50 L/min; BG FRACTION INSPIRED OXYGEN 40; BG HCO3 ACT 14.5 mmol/L (21.0-28.0); BG METHEMOGLOBIN 0.3 % (0.5-1.5); BG OXYGEN SATURATION 98.8 % (94.0-98.0); BG OXYHEMOGLOBIN 96.9 % (94.0-98.0); BG PCO2 28.0 mmHg (32.0-45.0); BG PH 7.333 (7.350-7.450); BG PO2 202.9 mmHg (83.0-108.0); BG SAMPLE SITE LEFT RADIAL; BG TOTAL HEMOGLOBIN 7.8 g/dL (12.0-16.0); BG VENT MODE MASK - SIMPLE
[2025-02-20] MEDS: CALCIUM GLUCONATE 100MG/ML 10ML VIAL IV NR (11:01)
[2025-02-20 11:53] LABS: BAND% 23.0 % (1.0-6.0); LYMPHOCYTES % MANUAL 7.0 % (20.0-60.0); MONOCYTES % MANUAL 5.0 % (2.0-8.0); NEUTROPHILS % MANUAL 65.0 % (45.0-75.0); NUCLEATED RED BLOOD CELLS 10 /100 WBC
[2025-02-20 11:54] LABS: PLATELET ESTIMATE MARKEDLY DECREASED
[2025-02-20] MEDS ORDERED: SODIUM CHLORIDE 3% 500ML IV SOLN IV ONE (16:45)
[2025-02-20] MEDS ORDERED: LORAZEPAM 2MG/ML UD SYRINGE IV PRN (16:45)
[2025-02-20] MEDS ORDERED: SODIUM CHLORIDE 3% 150 ML IV ONE (18:00)
[2025-02-20] MEDS: MORPHINE SULFATE 250 MG in DEXT 5% WATER 250 ML IV PRN (18:30)
== END 2025-02-20 23:55 | DRG 871 ==
LOC: ER 11:10 → EDBEDREQTM 13:01 → EDBEDREQSVC 13:01 → EDBEDREQ 13:01 → CANRESERV 13:07 → ENRESERV 13:07 → EDBEDREQSVC 13:16 → ENRESERV 21:53 → 6WST 23:15 → 4WST 02-11 12:24 → MICUSO 02-15 00:34 → 4WST 02-15 00:39 → MICUSO 02-15 00:46
PROVIDERS: ADMIT Internal Medicine; ATTEND Internal Medicine
PROC: 30233N1 Transfusion of Nonautologous Red Blood Cells into Peripheral Vein, Percutaneous Approach (ICD-10-PCS; principal; 2025-02-04)
PROC: 02HV33Z Insertion of Infusion Device into Superior Vena Cava, Percutaneous Approach (ICD-10-PCS; 2025-02-14)
PROC: B548ZZA Ultrasonography of Superior Vena Cava, Guidance (ICD-10-PCS; 2025-02-14)
DX: A41.9 Sepsis, unspecified organism (principal); J96.01 Acute respiratory failure with hypoxia; N17.0 Acute kidney failure with tubular necrosis; R57.1 Hypovolemic shock; R65.21 Severe sepsis with septic shock; K29.71 Gastritis, unspecified, with bleeding; G93.40 Encephalopathy, unspecified; I82.413 Acute embolism and thrombosis of femoral vein, bilateral; D68.9 Coagulation defect, unspecified; N39.0 Urinary tract infection, site not specified; I82.433 Acute embolism and thrombosis of popliteal vein, bilateral; D69.6 Thrombocytopenia, unspecified; I46.9 Cardiac arrest, cause unspecified; D53.9 Nutritional anemia, unspecified; E66.01 Morbid (severe) obesity due to excess calories; N18.9 Chronic kidney disease, unspecified; I12.9 Hypertensive chronic kidney disease with stage 1 through stage 4 chronic kidney disease, or unspecified chronic kidney disease; K76.9 Liver disease, unspecified; E87.20 Acidosis, unspecified; E87.1 Hypo-osmolality and hyponatremia; I48.19 Other persistent atrial fibrillation; R18.8 Other ascites; E88.09 Other disorders of plasma-protein metabolism, not elsewhere classified; E83.51 Hypocalcemia; E87.6 Hypokalemia; N35.92 Unspecified urethral stricture, female; E83.42 Hypomagnesemia; Z66 Do not resuscitate; S30.820A Blister (nonthermal) of lower back and pelvis, initial encounter; E53.8 Deficiency of other specified B group vitamins; K76.89 Other specified diseases of liver; N28.1 Cyst of kidney, acquired; X58.XXXA Exposure to other specified factors, initial encounter; D50.9 Iron deficiency anemia, unspecified; Z68.35 Body mass index [BMI] 35.0-35.9, adult; Z88.0 Allergy status to penicillin; Z74.01 Bed confinement status; Z85.43 Personal history of malignant neoplasm of ovary; Z87.440 Personal history of urinary (tract) infections; Y93.89 Activity, other specified; Y92.89 Other specified places as the place of occurrence of the external cause; Z51.5 Encounter for palliative care
CPT/HCPCS: 36415; 36600; 71045; 76705; 76770; 76856; 77001; 80048; 80053; 80076; 81003; 82270; 82375; 82607; 82728; 82746; 82805; 82962; 83036; 83540; 83550; 83605; 83735; 83880; 83930; 83935; 84100; 84145; 84300; 84484; 85014; 85018; 85025; 85044; 86850; 86900; 86920; 93005; 93306; 93970; 99291; A4606; C1725; J0282; J0612; J0692; J1720; J1815; J1956; J2185; J2354; J2371; J2405; J2470; J3430; J3475; J3480; J3490; J7030; J7050; J7060; J7070; P9016; P9047